=== PATIENT | female | born 1985 | race African-American/Black ===

== ENCOUNTER 2019-08-29 21:38 | Emergency (ER) | payer SELFPAY ==
[~2019-08-29] VITALS: Ht 167.6 cm; Wt 75.0 kg
[2019-08-29 22:21] VITALS: BP 125/59
== END 2019-08-30 00:10 | disposition left against medical advice (07) ==
LOC: ER 21:38
DX: N39.0 Urinary tract infection, site not specified (principal); Z53.21 Procedure and treatment not carried out due to patient leaving prior to being seen by health care provider